=== PATIENT | male | born 1975 | race Caucasian/White ===

== ENCOUNTER 2018-06-02 16:23 | Emergency (ER) | payer OTHER, MEDICAID ==
--- NOTE | 2018-06-02 16:36 | EDPHY ---
H & P Time Seen by Provider: 06/02/18 16:26 HPI/ROS: CHIEF COMPLAINT: Possible meth use HISTORY OF PRESENT ILLNESS: The patient is a 45-year-old male who presents emergency department via EMS with reported possible meth use. Per EMS the patient stated that he used meth when they arrived on scene. Patient subsequently became less responsive in route. His glucose was in the 60s. He was mildly tachycardic with normal blood pressures. The patient was not given Narcan. When I interacted with the patient he would not answer my questions. He opens eyes to voice but will not answer my questions appropriately. REVIEW OF SYSTEMS: Unable to obtain complete review systems due to the patient's mental status Past medical history: Unknown Past surgical history: Unknown Social history: Unknown Physical Exam: Vitals noted GENERAL: Lethargic. Opens eyes to sternal rub. HEENT: Normal pharynx, no signs of dehydration. NECK: Normal, supple. RESPIRATORY: Clear to auscultation bilaterally, no rales, rhonchi or wheezing. CVS: Regular with mild tachycardia, no rubs, murmurs, or gallops. ABDOMEN: Soft, nontender, nondistended, no organomegaly. BACK: Normal to inspection, no CVA tenderness. Large midline lumbar surgical incision scar SKIN: Normal color, no rash, warm, dry. No pallor. EXTREMITIES: No pedal edema, no joint swelling. NEURO/PSYCH: Lethargic. Opens eyes to sternal rub. Moves all extremities spontaneously. Constitutional: Initial Vital Signs Temperature (C) 35.8 C L 06/02/18 16:35 Heart Rate 108 H 06/02/18 16:35 Respiratory Rate 20 06/02/18 16:35 Blood Pressure 119/72 06/02/18 16:35 O2 Sat (%) 99 06/02/18 16:35 O2 Delivery Mode Room Air Allergies/Adverse Reactions: Unable to Assess Allergy (Unverified 06/02/18 16:41) Medical Decision Making - Diagnostics Imaging Results: Imaging Impressions Head CT 06/02/18 16:37 Impression: Mild motion artifact with no acute intracranial findings. Findings discussed with GIL JIANG 06/02/2018 at 18:42. ED Course/Re-evaluation: In the emergency department I met EMS on arrival. I took report from the stock roller. The patient had a glucose in the 60s. Patient was given Narcan 0.2 mg IV. Patient had no response. I rechecked the patient. He had no change in his condition. He was protecting his airway. Head CT: Please refer the dictated report. No acute disease 1845: The patient is lying in his bed. No distress. Patient is protecting his airway. Rechecked the patient on numerous occasions. His symptoms improved while here. 1045: The patient is awaiting alert. He sitting up in bed. He has no complaints. Patient was given warnings prior to leaving. He will return with worsening symptoms. Differential Diagnosis: My differential includes but is not limited to drug overdose, alcohol abuse, bacteremia sepsis, closed-head injury - Data Points Laboratory Results: Laboratory Results 06/02/18 14:37 06/02/18 14:37 06/02/18 06/02/18 14:37 14:37 WBC 9.12 10^3/uL 10^3/uL (3.80-9.50) RBC 4.03 10^6/uL L 10^6/uL (4.40-6.38) Hgb 12.5 g/dL L g/dL (13.7-17.5) Hct 36.9 % L % (40.0-51.0) MCV 91.6 fL fL (81.5-99.8) MCH 31.0 pg pg (27.9-34.1) MCHC 33.9 g/dL g/dL (32.4-36.7) RDW 13.3 % % (11.5-15.2) Plt Count 231 10^3/uL 10^3/uL (150-400) MPV 10.9 fL fL (8.7-11.7) Neut % (Auto) 56.5 % % (39.3-74.2) Lymph % (Auto) 31.5 % % (15.0-45.0) Mason % (Auto) 10.1 % % (4.5-13.0) Eos % (Auto) 1.3 % % (0.6-7.6) Baso % (Auto) 0.3 % % (0.3-1.7) Nucleat RBC Rel Count 0.0 % % (0.0-0.2) Absolute Neuts (auto) 5.15 10^3/uL 10^3/uL (1.70-6.50) Absolute Lymphs (auto) 2.87 10^3/uL 10^3/uL (1.00-3.00) Absolute Monos (auto) 0.92 10^3/uL H 10^3/uL (0.30-0.80) Absolute Eos (auto) 0.12 10^3/uL 10^3/uL (0.03-0.40) Absolute Basos (auto) 0.03 10^3/uL 10^3/uL (0.02-0.10) Absolute Nucleated RBC 0.00 10^3/uL 10^3/uL (0-0.01) Immature Gran % 0.3 % % (0.0-1.1) Immature Gran # 0.03 10^3/uL 10^3/uL (0.00-0.10) Sodium 135 mEq/L mEq/L (135-145) Potassium 4.1 mEq/L mEq/L (3.5-5.2) Chloride 106 mEq/L mEq/L (97-110) Carbon Dioxide 21 mEq/l L mEq/l (22-31) Anion Gap 8 mEq/L mEq/L (6-14) BUN 17 mg/dL mg/dL (7-23) Creatinine 1.0 mg/dL mg/dL (0.7-1.3) Estimated GFR > 60 Glucose 67 mg/dL L mg/dL (70-100) Calcium 9.0 mg/dL mg/dL (8.5-10.4) Salicylates < 1.0 mg/dL L mg/dL (2.0-20.0) Acetaminophen < 10 mcg/mL L mcg/mL (10-30) Ethyl Alcohol < 10 mg/dL mg/dL (0-10) Medications Given: Discontinued Medications Naloxone HCl (Narcan) 0.2 mg IVP EDNOW ONE Stop: 06/02/18 16:38 Last Admin: 06/02/18 16:46 Dose: 0.2 mg Departure - Departure Disposition: Home, Routine, Self-Care Clinical Impression: Altered mental status Qualifiers: Altered mental status type: unspecified Qualified Code(s): R41.82 - Altered mental status, unspecified Condition: Good Instructions: Altered Mental Status (ED) Additional Instructions: Return with worsening symptoms or any other concerns. Referrals: [facility],. [Clinic] - As per Instructions
[2018-06-02] MEDS ORDERED: NALOXONE HCL 0.4 MG/ML INJ IVP ONE (16:37)
[2018-06-02 16:43] LABS: PLATELET COUNT 231 10^3/uL (150-400)
[2018-06-03 00:25] VITALS: BP 133/76
== END 2018-06-03 00:25 | disposition home or self-care (01) ==
LOC: EDBD 16:23
DX: R41.82 Altered mental status, unspecified (principal); F15.20 Other stimulant dependence, uncomplicated
CPT/HCPCS: 70450; 96374; 99285; J2310; G0480